=== PATIENT | male | born 1935 | race Caucasian/White ===

== ENCOUNTER → 2022-12-15 10:29 | Outpatient (CLI) | payer MEDICARE, OTHER, SELFPAY | PROVIDERS: PCP Internal Medicine Geriatric Medicine; Referring Provider Specialist; Visit Provider Specialist | DX: C61 Malignant neoplasm of prostate; M81.8 Other osteoporosis without current pathological fracture; T38.7X5A Adverse effect of androgens and anabolic congeners, initial encounter | CPT/HCPCS: 77080 ==